=== PATIENT | male | born 1960 | race African-American/Black ===

== ENCOUNTER 2018-09-13 09:41 | Emergency (ER) | payer OTHER ==
[~2018-09-13] VITALS: Ht 177.8 cm; Wt 93.0 kg
[2018-09-13 10:44] VITALS: BP 154/109
[2018-09-13] MEDS ORDERED: KETOROLAC TROMETH 60MG/2ML VIAL IM ONE (11:15)
== END 2018-09-13 11:28 | disposition home or self-care (01) ==
LOC: ER 09:43
DX: K12.2 Cellulitis and abscess of mouth (principal)
CPT/HCPCS: 96372; 99283; J1885

== ENCOUNTER 2021-04-09 17:29 | Emergency (ER) | payer OTHER ==
[~2021-04-09] VITALS: Ht 177.8 cm; Wt 72.6 kg
[2021-04-09] MEDS ORDERED: ACETAMINOPHEN 500 MG TAB PO ONE (20:00)
[2021-04-09] MEDS ORDERED: CLIN300C8 PO ×2 (21:51→22:15)
[2021-04-10 03:17] VITALS: BP 157/79
== END 2021-04-10 03:48 | disposition home or self-care (01) ==
LOC: ER 17:31
DX: M54.50 Low back pain, unspecified (principal); N32.89 Other specified disorders of bladder; C79.51 Secondary malignant neoplasm of bone; K04.7 Periapical abscess without sinus
CPT/HCPCS: 72131